=== PATIENT | female | born 1995 | race African-American/Black ===

== ENCOUNTER 2017-03-09 23:04 | Emergency (ER) | payer BC ==
[2017-03-09 23:41] LABS: Bilirubin Negative (Negative); Blood, Urine Negative (Negative); Glucose, Urine (Dipstick) Negative (Negative); Ketone, Urine Trace mg/dL (Negative); Nitrite Negative (Negative); Protein, Urine (Dipstick) 100 mg/dL (Neg-Trace); Urobilinogen 0.2 mg/dL (0.2-1.0)
[2017-03-09 23:46] LABS: #Basophils 0.1 thou/uL (0.0-0.2); #Lymphocytes 2.5 thou/uL (1.20-3.40); #Monocytes 0.8 thou/uL (0.11-0.59); #Neutrophils 6.3 thou/uL (1.40-6.50); %Basophils 0.6 % (0.0-1.0); %Eosinophils 0.5 % (0.0-10.0); %Monocytes 8.1 % (0.0-4.0); Hematocrit 35.7 % (36.0-47.0); Mean Platelet Volume 7.8 fL (7.4-10.4); Red Blood Cell (RBC) Count 4.28 mill/uL (4.00-5.20); White Blood Cell (WBC) Count 9.7 thou/uL (4.8-10.8)
[2017-03-09 23:48] LABS: Bacteria/HPF None Seen HPF (None Seen); Hyaline Casts/LPF 7-10 HYALINE CAST LPF (0-3 Hyaline); Squamous Epithelial 0-3 HPF (0-3)
[2017-03-10 00:04] LABS: ALT (SGPT) 13 U/L (8-55); AST (SGOT) 22 U/L (5-34); Alkaline Phosphatase 47 U/L (40-150); Anion Gap 13 mmol/L (10-20); BUN (Urea Nitrogen) 7 mg/dL (7.0-18.7); Bilirubin, Total 0.3 mg/dL (0.2-1.2); Calc. Creatinine Clearance 0 mL/min (70-130); Calcium 9.1 mg/dL (7.8-10.44); Carbon Dioxide 21 mmol/L (22-29); Chloride 105 mmol/L (98-107); Estimated GFR-MDRD Greater than 90; Globulin 3.7 g/dL (2.4-3.5); Protein, Total 7.6 g/dL (6.0-8.3)
--- NOTE | 2017-03-10 00:08 | ULT ---
PELVIC ULTRASOUND: Date: 03-09-17 History: Cramping pelvic pain, vaginal bleeding in patient who is reportedly 7 weeks . FINDINGS: Multiple transabdominal sonographic images of the pelvis are obtained. There is a fluid collection seen in the endometrial canal consistent with gestational sac which cont ains both a pole and yolk sac. The crown-rump length measures 1.82 cm consistent with gestatio nal age by ultrasound of 8 weeks 2 days. This corresponds to gestational age by last menstrual perio d of 8 weeks 1 day. Cardiac doppler demonstrates heart tones with a heart rate of 175 beats/minute. There is a small hypoechoic structure in a subchorionic location measuring 1.1 cm, most suggestive o f very small subchronic hemorrhage. The ovaries demonstrate a normal sonographic appearance bilaterally. The right ovary measures 4 cm x 1.9 cm x 2.6 cm with the left ovary measuring 3.9 cm x 1.9 cm x 3.1 cm. Doppler evaluation of each ovary with spectral analysis and color flow evaluation demonstrates arter ial flow. No free fluid is seen in the cul-de-sac. IMPRESSION: 1. Very small subchorionic hemorrhage. Continued follow up is recommended. 2. Single live intrauterine gestation with heart tones documented. Gestational age by measurem ent of the crown rump length is 8 weeks 2 days. 3. Above findings discussed with Dr. Jeffrey in the Emergency Department on 03-09-17 at 2359 hours. POS: [facility]
[2017-03-10] MEDS ORDERED: Nitrofurantoin Monohyd/M-Cryst 100 MG CAP PO SCH (00:30)
== END 2017-03-10 00:48 | disposition home or self-care (01) ==
LOC: ERS 23:04
DX: O20.0 Threatened abortion (principal); O20.8 Other hemorrhage in early pregnancy; O99.341 Other mental disorders complicating pregnancy, first trimester; F32.9 Major depressive disorder, single episode, unspecified; Z3A.01 Less than 8 weeks gestation of pregnancy
CPT/HCPCS: 76856; 80053; 81003; 81015; 84702; 85025; 87480; 87491; 87510; 87591; 87660; 93976

== ENCOUNTER 2017-06-12 06:48 | Outpatient (CLI) | payer BC | END 2017-06-12 06:49 | disposition home or self-care (01) | LOC: BICULT 06:48 | PROVIDERS: ATTEND Nurse Practitioner | DX: Z34.02 Encounter for supervision of normal first pregnancy, second trimester (principal); Z3A.21 21 weeks gestation of pregnancy | CPT/HCPCS: 76805 ==

== ENCOUNTER 2017-08-09 23:46 | Emergency (ER) | payer BC ==
[2017-08-10] MEDS ORDERED: Acetaminophen 325 MG TAB ONE (01:37)
[2017-08-10 01:54] LABS: Bilirubin Negative (Negative); Blood, Urine Negative (Negative); Clarity CLOUDY (Clear); Glucose, Urine (Dipstick) Negative (Negative); Leukocyte Negative (Negative); Nitrite Negative (Negative); Protein, Urine (Dipstick) 100 mg/dL (Neg-Trace); Specific Gravity, Urine 1.015 (1.002-1.036); pH, Urine 6.5 (5.0-9.0)
[2017-08-10 01:57] LABS: Bacteria/HPF 1+ HPF (None Seen); Hyaline Casts/LPF 0-3 HYALINE CAST LPF (0-3 Hyaline); Pathc Cast-AUWi Flag 0.27 (0-2.49); RBC/HPF 0-3 HPF (0-3)
== END 2017-08-10 02:55 | disposition home or self-care (01) ==
LOC: ERS 23:46
DX: O23.43 Unspecified infection of urinary tract in pregnancy, third trimester (principal); O9A.313 Physical abuse complicating pregnancy, third trimester; O99.343 Other mental disorders complicating pregnancy, third trimester; F32.9 Major depressive disorder, single episode, unspecified; Z3A.29 29 weeks gestation of pregnancy
CPT/HCPCS: 81003; 81015; 99283

== ENCOUNTER 2017-12-17 19:17 | Emergency (ER) | payer BC ==
[2017-12-17 19:50] LABS: Bilirubin Negative (Negative); Blood, Urine Negative (Negative); Clarity CLEAR (Clear); Glucose, Urine (Dipstick) Negative (Negative); Leukocyte Small (Negative); Nitrite Negative (Negative); Protein, Urine (Dipstick) 30 mg/dL (Neg-Trace); Specific Gravity, Urine 1.029 (1.002-1.036); pH, Urine 7.5 (5.0-9.0)
[2017-12-17 19:52] LABS: Bacteria/HPF None Seen HPF (None Seen); Hyaline Casts/LPF 0-3 HYALINE CAST LPF (0-3 Hyaline); Squamous Epithelial 0-3 HPF (0-3)
[2017-12-17 20:01] LABS: #Basophils 0.1 thou/uL (0.0-0.2); #Eosinphils 0.3 thou/uL (0.0-0.7); #Lymphocytes 2.6 thou/uL (1.20-3.40); #Monocytes 0.9 thou/uL (0.11-0.59); #Neutrophils 5.8 thou/uL (1.40-6.50); %Basophils 0.5 % (0.0-1.0); %Eosinophils 3.3 % (0.0-10.0); %Lymphocytes 26.9 % (21.0-51.0); %Monocytes 8.9 % (0.0-10.0); %Neutrophils 60.4 % (42.0-75.0); Hemoglobin 12.2 g/dL (12.0-16.0); Mean Corpuscular HGB CONC 32.2 g/dL (32.0-36.0); Mean Corpuscular Hemoglobin 28.5 pg (27.0-31.0); Mean Corpuscular Volume 88.4 fL (78.0-98.0); Mean Platelet Volume 8.1 fL (7.4-10.4); Platelet Count 175 thou/uL (130-400); RBC Distribution Width 11.4 % (11.5-14.5); Red Blood Cell (RBC) Count 4.28 mill/uL (4.20-5.40); White Blood Cell (WBC) Count 9.6 thou/uL (4.8-10.8)
--- NOTE | 2017-12-17 21:44 | ULT ---
PELVIC ULTRASOUND: 12/17/17 Transabdominal and endovaginal ultrasound of pelvis performed. HISTORY: Vaginal bleeding. Two months . The uterus has a normal sonographic appearance. The uterine measurements are recorded at 9.6 x 4.5 x 4.9 cm, consistent with recent state. The endometrial stripe is normal measured at 4 to 5 mm. Both ovaries are identified and appear unremarkable. Color doppler and spectral analysis demonstr ates blood flow to both ovaries. No free fluid. No evidence of intrauterine gestation. IMPRESSION: Unremarkable pelvic ultrasound. POS: [facility]
== END 2017-12-17 22:20 | disposition home or self-care (01) ==
LOC: ERS 19:17
DX: N93.8 Other specified abnormal uterine and vaginal bleeding (principal); F32.9 Major depressive disorder, single episode, unspecified
CPT/HCPCS: 36415; 76856; 81003; 81015; 84702; 85025; 86900; 86901

== ENCOUNTER 2018-02-22 09:48 | Emergency (ER) | payer BC ==
[2018-02-22] MEDS ORDERED: HYDROcodone/Acetaminophen 10/325 mg Tablet ONE (11:49)
[2018-02-22 13:22] LABS: BHCG - Serum Negative (NEGATIVE); Pregs Control Background? CLEAR/WHITE (CLR/WHITE); Pregs Control Bar Appear? YES (CONTROL BAR)
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
== END 2018-02-22 13:49 | disposition home or self-care (01) ==
LOC: ERS 09:48
DX: S00.83XA Contusion of other part of head, initial encounter (principal); F32.9 Major depressive disorder, single episode, unspecified; W50.0XXA Accidental hit or strike by another person, initial encounter
CPT/HCPCS: 36415; 70486; 72125; 84703

== ENCOUNTER 2018-12-29 19:35 | Emergency (ER) | payer BC ==
[2018-12-29 20:11] LABS: Bacteria/HPF None Seen HPF (None Seen); Bilirubin Negative (Negative); Blood, Urine Negative (Negative); Clarity Clear (Clear); Glucose, Urine (Dipstick) Normal (Negative); Leukocyte 75 Leu/uL (Negative); Mucous/LPF 1+ LPF (<2+); Nitrite Negative (Negative); Protein, Urine (Dipstick) 20 mg/dL (Neg-Trace); Urobilinogen 6 mg/dL (Less than 2)
[2018-12-29 20:13] LABS: Pregnancy Test - Urine (BHCG) Negative (Negative); Pregu Control Background? CLEAR/WHITE (CLR/WHITE); Pregu Control Bar Appear? YES (CONTROL BAR); Specific Gravity 1.032 (1.002-1.036)
[2018-12-29 21:06] LABS: #Eosinphils 0.1 thou/uL (0.0-0.7); #Lymphocytes 1.6 thou/uL (1.20-3.40); #Monocytes 0.7 thou/uL (0.11-0.59); %Basophils 0.3 % (0.0-1.0); %Eosinophils 1.2 % (0.0-10.0); %Lymphocytes 21.3 % (21.0-51.0); %Monocytes 9.7 % (0.0-10.0); %Neutrophils 67.6 % (42.0-75.0); Hemoglobin 11.5 g/dL (12.0-16.0); Mean Corpuscular HGB CONC 30.4 g/dL (32.0-36.0); Mean Corpuscular Volume 85.5 fL (78.0-98.0); Mean Platelet Volume 9.2 fL (7.4-10.4); Platelet Count 204 thou/uL (130-400); RBC Distribution Width 12.9 % (11.5-14.5); Red Blood Cell (RBC) Count 4.42 mill/uL (4.20-5.40); White Blood Cell (WBC) Count 7.5 thou/uL (4.8-10.8)
[2018-12-29 21:20] LABS: ALT (SGPT) 7 U/L (8-55); AST (SGOT) 17 U/L (5-34); Albumin 4.1 g/dL (3.5-5.0); Alkaline Phosphatase 60 U/L (40-150); Anion Gap 9 mmol/L (10-20); BUN (Urea Nitrogen) 9 mg/dL (7.0-18.7); Bilirubin, Total 0.5 mg/dL (0.2-1.2); Calc. Creatinine Clearance 0 mL/min (70-130); Calcium 9.1 mg/dL (7.8-10.44); Carbon Dioxide 25 mmol/L (22-29); Chloride 105 mmol/L (98-107); Estimated GFR-MDRD Greater than 90; Globulin 3.8 g/dL (2.4-3.5); Glucose 84 mg/dL (70-105); Lipase 48 U/L (8-78); Potassium 4.3 mmol/L (3.5-5.1); Protein, Total 7.9 g/dL (6.0-8.3); Sodium 135 mmol/L (136-145)
[2018-12-29] MEDS ORDERED: Ondansetron PF 4 MG/2 ML Vial ONE (22:02)
[2018-12-29] MEDS ORDERED: Morphine 4 MG/ML VIAL ONE (22:02)
--- NOTE | 2018-12-29 22:14 | ULT ---
EXAM: Transabdominal and transvaginal pelvic ultrasound with Doppler PROVIDED CLINICAL HISTORY: Right lower quadrant pain COMPARISON: None FINDINGS: Nonspecific thickening of the uterine endometrium. This measures about 1.6 cm. Uterus appears otherwi se unremarkable. Complex cystic structure involves right ovary measuring about 5.2 cm, statistically a hemorrhagic cys t in a patient of this age. Left ovary appears unremarkable. Color Doppler and spectral analysis of the ovarian waveforms demonstrates flow bilaterally. No evidence for significant free pelvic fluid. IMPRESSION: 1. 5.2 cm complex right adnexal cyst, likely reflecting a hemorrhagic physiologic cyst in a patient o f this age. 12 week follow-up ultrasound recommended. 2. Nonspecific thickening of the uterine endometrium. 3. This dictation assumes a negative beta hCG value.
[2018-12-29] MEDS ORDERED: Ketorolac Tromethamine 60 MG/2 ML VIAL ONE (22:42)
== END 2018-12-29 23:02 | disposition home or self-care (01) ==
LOC: ERS 19:35
DX: N83.201 Unspecified ovarian cyst, right side (principal); N39.0 Urinary tract infection, site not specified; F32.9 Major depressive disorder, single episode, unspecified
CPT/HCPCS: 76856; 80053; 81003; 81015; 81025; 83690; 85025; 87491; 87591; 93976; 96372; 96374; 96375; J1885; J2270; J2405

== ENCOUNTER 2019-04-15 13:17 | Emergency (ER) | payer BC ==
[2019-04-15] MEDS ORDERED: Adacel (T-DAP) 0.5 ML SYRINGE ONE ×2 (13:20→13:22)
[2019-04-15] MEDS ORDERED: Morphine 4 MG/ML VIAL ONE (13:26)
[2019-04-15 13:44] LABS: Hemoglobin 10.1 g/dL (12.0-16.0); Mean Corpuscular HGB CONC 32.3 g/dL (32.0-36.0); Mean Corpuscular Hemoglobin 26.4 pg (27.0-31.0); Mean Corpuscular Volume 81.8 fL (78.0-98.0); Mean Platelet Volume 8.5 fL (7.4-10.4); Platelet Count 220 thou/uL (130-400); Red Blood Cell (RBC) Count 3.82 mill/uL (4.20-5.40); White Blood Cell (WBC) Count 11.1 thou/uL (4.8-10.8)
[2019-04-15 13:49] LABS: INR-International Normal Ratio 1.1; PTT 25.1 SEC (22.9-36.1); Prothrombin Time 14.6 SEC (12.0-14.7)
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
[2019-04-15 13:56] LABS: ALT (SGPT) Less than 7 U/L (8-55); AST (SGOT) 14 U/L (5-34); Albumin 3.8 g/dL (3.5-5.0); Alkaline Phosphatase 57 U/L (40-110); Anion Gap 14 mmol/L (10-20); BUN (Urea Nitrogen) 9 mg/dL (7.0-18.7); Bilirubin, Total 0.4 mg/dL (0.2-1.2); Calc. Creatinine Clearance 0 mL/min (70-130); Calcium 8.7 mg/dL (7.8-10.44); Carbon Dioxide 19 mmol/L (22-29); Chloride 107 mmol/L (98-107); Estimated GFR-MDRD Greater than 90; Globulin 3.4 g/dL (2.4-3.5); Glucose 168 mg/dL (70-105); Protein, Total 7.2 g/dL (6.0-8.3); Sodium 137 mmol/L (136-145)
[2019-04-15] MEDS ORDERED: Morphine 2 MG/ML SYRINGE ONE (14:02)
[2019-04-15 14:03] LABS: Band 1 % (5-11); Eosinophils 1 % (0-10); Hypochromia SLIGHT = 6-15 cells (100X) (0-5/hpf); Lymphocytes 53 % (21-51); MDiff Complete? YES; Monocytes 7 % (0-10); Neutrophil 37 % (42-75); Ovalocytes SLIGHT = 2-5 cells (100X) (0-1/hpf); Platelet Morphology Comment Appears Adequate; Polychromasia SLIGHT = 2-3 cells (100X) (0-2/hpf); Reactive Lymphocytes 1 % (0-10)
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
== END 2019-04-15 14:18 | disposition short-term general hospital (02) ==
LOC: ERS 13:17
DX: S01.21XA Laceration without foreign body of nose, initial encounter (principal); F32.9 Major depressive disorder, single episode, unspecified; Z23 Encounter for immunization; W34.00XA Accidental discharge from unspecified firearms or gun, initial encounter
CPT/HCPCS: 70250; 70450; 70486; 71045; 80053; 85025; 85610; 85730; 86850; 86900; 86901; 90471; 90715; 96365; 96375; G0390; J0690; J2270

== ENCOUNTER 2019-05-18 18:36 | Emergency (ER) | payer BC | END 2019-05-18 22:11 | disposition left against medical advice (07) | LOC: ERS 18:36 | DX: Z53.21 Procedure and treatment not carried out due to patient leaving prior to being seen by health care provider (principal) ==

== ENCOUNTER 2020-04-09 03:18 | Inpatient (IN) | payer BC, OTHER ==
[2020-04-09 03:47] VITALS: BMI 22.8
[2020-04-09] MEDS ORDERED: hydrALAZINE 20 MG/ML VIAL SLOW IVP PRN ×2 (04:00→10:01)
[2020-04-09] MEDS ORDERED: Promethazine HCl 25 MG/ML VIAL IM PRN ×2 (04:00→06:48)
[2020-04-09] MEDS ORDERED: Butorphanol Tartrate 1 MG/ML VIAL SLOW IVP PRN (04:00)
[2020-04-09] MEDS ORDERED: Ondansetron PF 4 MG/2 ML Vial IVP PRN ×3 (04:00→10:01)
[2020-04-09] MEDS ORDERED: Lidocaine 1% (PF) 30 ML VIAL SC PRN (04:00)
[2020-04-09] MEDS ORDERED: NS w/ Oxytocin 10 units 500 ML IV SCH ×2 (04:00)
[2020-04-09] MEDS ORDERED: Lactated Ringer's 1,000 ML IV SCH (04:00)
[2020-04-09 04:05] LABS: Hemoglobin 11.8 g/dL (12.0-16.0); Mean Corpuscular HGB CONC 32.5 g/dL (32.0-36.0); Mean Corpuscular Hemoglobin 27.4 pg (27.0-31.0); Mean Corpuscular Volume 84.5 fL (78.0-98.0); Mean Platelet Volume 8.2 fL (7.4-10.4); Platelet Count 194 thou/uL (130-400); RBC Distribution Width 11.7 % (11.5-14.5)
[2020-04-09] MEDS: Lactated Ringer's 1,000 ML IV SCH ×2 (04:30→07:10)
[2020-04-09] MEDS ORDERED: Fentanyl 4 mcg/Bup 0.1% Cadd 100 ML ONE (04:42)
[2020-04-09 04:44] LABS: HBSAg Index 0.12 S/CO (0-0.99); Hep B Surf Ag Non-Reactive S/CO (NonReactive); Syphilis Antibody Nonreactive (Nonreactive); Syphilis Antibody Index 0.04 S/CO (<1.00 Non-Reactive)
[2020-04-09 06:45] LABS: Amphetamine Not Detected (NotDetected); Barbiturates Screen Not Detected (NotDetected); Benzodiazepine Screen Not Detected (NotDetected); Cocaine Metabolite Screen Not Detected (NotDetected); Medtox Control Line Valid? VALID (VALID); Medtox Reader # READER 4; Methadone Not Detected (NotDetected); Methamphetamine Not Detected (NotDetected); Opiate Screen Not Detected (NotDetected); Oxycodone Screen Not Detected (NotDetected); Phencyclidine (PCP) Not Detected (NotDetected); THC/Cannabinoid Screen Not Detected (NotDetected); Tricyclic Screen Not Detected (NotDetected)
[2020-04-09] MEDS ORDERED: Naloxone HCl 0.4 mg/ml Vial IVP PRN ×2 (06:48)
[2020-04-09] MEDS ORDERED: EPHEDRINE 25 MG/5 ML SYRINGE SLOW IVP PRN (06:48)
[2020-04-09] MEDS ORDERED: Acetaminophen 325 MG TAB PO PRN (06:48)
[2020-04-09] MEDS ORDERED: Lactated Ringer's 500 ML IV PRN (06:48)
[2020-04-09] MEDS ORDERED: diphenhydrAMINE 50 MG/ML VIAL IVP PRN (06:48)
[2020-04-09] MEDS ORDERED: Communication Order-Pharmacy FS SCH (07:00)
[2020-04-09] MEDS ORDERED: Fentanyl 4 mcg/Bupivacaine 0.1% Cassette 100 ML EPIDURAL SCH (07:00)
[2020-04-09] MEDS: NS / Oxytocin 40 units/1000ml 1,000 ML IV SCH ×2 (08:42→10:00)
[2020-04-09] MEDS ORDERED: FLU VACC QS2020-21(6MOS UP)/PF 60 MCG/0.5 ML SYRINGE IM ONE (09:00)
[2020-04-09] MEDS ORDERED: Milk Of Magnesia 30 ML UDCUP PO PRN (10:01)
[2020-04-09] MEDS ORDERED: Lanolin Ointment 7 GM TUBE TOP PRN (10:01)
[2020-04-09] MEDS ORDERED: NS / Oxytocin 40 units/1000ml 1,000 ML IV SCH (10:01)
[2020-04-09] MEDS ORDERED: Benzocaine-Menthol 82.5 ML CAN TOP PRN (10:01)
[2020-04-09] MEDS ORDERED: HYDROcodone/Acetaminophen 5/325 mg Tablet PO PRN (10:01)
[2020-04-09] MEDS ORDERED: Bisacodyl 10 MG SUPP PR PRN (10:01)
[2020-04-09] MEDS ORDERED: diphenhydrAMINE 25 MG CAP PO PRN (10:01)
[2020-04-09] MEDS ORDERED: Bupivacaine/Epinephrine 0.25% 30 ML VIAL ONE (10:02)
[2020-04-09 10:42] LABS: SARS-CoV-2 MS2 Positive; SARS-CoV-2 N Gene Negative; SARS-CoV-2 S Gene Negative; SARS-CoV-2 by NAA Not Detected (NotDetected); SARS-CoV-2 orf1ab Negative
[2020-04-09] MEDS: Ferrous Sulfate 325 MG TAB PO SCH (14:20)
[2020-04-09] MEDS: Ibuprofen 800 MG TAB PO SCH ×2 (14:43→21:41)
[2020-04-09] MEDS: Docusate Calcium (SURFAK) 240 MG CAP PO SCH (21:41)
[2020-04-10] MEDS: Ibuprofen 800 MG TAB PO SCH ×2 (05:47→13:12)
[2020-04-10] MEDS: Ferrous Sulfate 325 MG TAB PO SCH ×2 (07:55→16:23)
[2020-04-10 07:58] VITALS: BP 115/76; TEMP 97.9
[2020-04-10] MEDS: Docusate Calcium (SURFAK) 240 MG CAP PO SCH (08:05)
[2020-04-10] MEDS: HYDROcodone/Acetaminophen 5/325 mg Tablet PO PRN ×2 (08:07→12:50)
[2020-04-10] MEDS ORDERED: Prenatal Vitamin 1 TAB PO SCH (09:00)
[2020-04-10] MEDS ORDERED: Adacel (T-DAP) 0.5 ML SYRINGE IM ONE (10:01)
== END 2020-04-10 17:15 | disposition home or self-care (01) | DRG 807 ==
LOC: L&D/OP 03:18 → L&D 03:38 → 3SE 11:24
PROVIDERS: ADMIT Family Medicine; ATTEND Family Medicine
PROC: 10E0XZZ Delivery of Products of Conception, External Approach (ICD-10-PCS; principal; 2020-04-09)
DX: O69.81X0 Labor and delivery complicated by cord around neck, without compression, not applicable or unspecified (principal); Z37.0 Single live birth; Z3A.39 39 weeks gestation of pregnancy; Z20.828 Contact with and (suspected) exposure to other viral communicable diseases
CPT/HCPCS: 36415; 51702; 80306; 85027; 86780; 86850; 86900; 86901; 87340; 87635; 99285; J0595; U0003

== ENCOUNTER 2020-09-28 16:07 | Emergency (ER) | payer BC ==
[2020-09-28] MEDS ORDERED: Metoclopramide HCl 10 MG/2 ML VIAL ONE (17:19)
[2020-09-28] MEDS ORDERED: Ketorolac Tromethamine 30 MG/ML VIAL ONE (17:19)
[2020-09-28] MEDS ORDERED: diphenhydrAMINE 50 MG/ML VIAL ONE (17:19)
[2020-09-28] MEDS ORDERED: Aspirin Chewable 81 MG TAB ONE (17:20)
[2020-09-28] MEDS ORDERED: Ondansetron PF 4 MG/2 ML Vial ONE (17:20)
[2020-09-28 17:48] LABS: #Basophils 0.1 thou/uL (0.0-0.2); #Eosinphils 0.2 thou/uL (0.0-0.7); #Lymphocytes 2.1 thou/uL (1.20-3.40); #Monocytes 0.7 thou/uL (0.11-0.59); #Neutrophils 4.9 thou/uL (1.40-6.50); %Basophils 0.7 % (0.0-1.0); %Eosinophils 2.2 % (0.0-10.0); %Lymphocytes 26.7 % (21.0-51.0); %Monocytes 8.3 % (0.0-10.0); %Neutrophils 62.1 % (42.0-75.0); Mean Corpuscular Hemoglobin 27.9 pg (27.0-31.0); Mean Corpuscular Volume 87.1 fL (78.0-98.0); Mean Platelet Volume 7.4 fL (7.4-10.4); Platelet Count 243 thou/uL (130-400); RBC Distribution Width 12.3 % (11.5-14.5); White Blood Cell (WBC) Count 7.9 thou/uL (4.8-10.8)
[2020-09-28 18:09] LABS: ALT (SGPT) Less than 7 U/L (8-55); AST (SGOT) 16 U/L (5-34); Alkaline Phosphatase 56 U/L (40-110); Anion Gap 12 mmol/L (10-20); BUN (Urea Nitrogen) 9 mg/dL (7.0-18.7); Bilirubin, Total 0.3 mg/dL (0.2-1.2); Calc. Creatinine Clearance 0 mL/min (70-130); Calcium 9.2 mg/dL (7.8-10.44); Carbon Dioxide 25 mmol/L (22-29); Chloride 102 mmol/L (98-107); Globulin 3.8 g/dL (2.4-3.5); Glucose 85 mg/dL (70-105); Magnesium 1.8 mg/dL (1.6-2.6); Potassium 3.8 mmol/L (3.5-5.1); Protein, Total 7.8 g/dL (6.0-8.3); Sodium 135 mmol/L (136-145)
== END 2020-09-28 21:08 | disposition short-term general hospital (02) ==
LOC: ERS 16:07
DX: O99.351 Diseases of the nervous system complicating pregnancy, first trimester (principal); G43.909 Migraine, unspecified, not intractable, without status migrainosus; O99.891 Other specified diseases and conditions complicating pregnancy; R53.1 Weakness
CPT/HCPCS: 36415; 70450; 80053; 83735; 84702; 85025; 93005; 96365; 96375; J1200; J1885; J2405; J2765

== ENCOUNTER 2021-11-14 22:51 | Emergency (ER) | payer BC ==
[2021-11-15] MEDS ORDERED: Acetaminophen 500 MG TAB ONE (00:52)
[2021-11-15 01:04] LABS: #Eosinphils 0.2 thou/uL (0.0-0.7); #Lymphocytes 2.2 thou/uL (1.20-3.40); #Monocytes 0.7 thou/uL (0.11-0.59); #Neutrophils 3.7 thou/uL (1.40-6.50); %Basophils 0.5 % (0.0-1.0); %Eosinophils 2.7 % (0.0-10.0); %Lymphocytes 32.4 % (21.0-51.0); %Monocytes 9.8 % (0.0-10.0); %Neutrophils 54.5 % (42.0-75.0); Hemoglobin 8.9 g/dL (12.0-16.0); Mean Corpuscular HGB CONC 31.9 g/dL (32.0-36.0); Mean Corpuscular Hemoglobin 25.5 pg (27.0-31.0); Mean Corpuscular Volume 80.1 fL (78.0-98.0); Mean Platelet Volume 7.9 fL (7.4-10.4); Platelet Count 225 thou/uL (130-400); RBC Distribution Width 14.1 % (11.5-14.5); Red Blood Cell (RBC) Count 3.49 mill/uL (4.20-5.40); White Blood Cell (WBC) Count 6.9 thou/uL (4.8-10.8)
== END 2021-11-15 02:37 | disposition home or self-care (01) ==
LOC: ERS 22:51
DX: O9A.212 Injury, poisoning and certain other consequences of external causes complicating pregnancy, second trimester (principal); S02.609A Fracture of mandible, unspecified, initial encounter for closed fracture; O99.012 Anemia complicating pregnancy, second trimester; D57.1 Sickle-cell disease without crisis; Y04.2XXA Assault by strike against or bumped into by another person, initial encounter; Z3A.20 20 weeks gestation of pregnancy
CPT/HCPCS: 36415; 70110; 85025; 86900; 86901; 99283

== ENCOUNTER 2021-11-26 13:39 | Outpatient (CLI) | payer BC, OTHER | END 2021-11-26 13:40 | disposition home or self-care (01) | LOC: BICULT 13:39 | PROVIDERS: ATTEND Family Medicine | DX: Z34.82 Encounter for supervision of other normal pregnancy, second trimester (principal); Z3A.21 21 weeks gestation of pregnancy | CPT/HCPCS: 76805 ==